=== PATIENT | female | born 1985 | race American Indian/Alaskan Native ===

== ENCOUNTER 2016-07-19 08:58 | Emergency (ER) | payer MEDICAID ==
[2016-07-19 09:08] VITALS: BP 117/71
--- NOTE | 2016-07-19 09:45 | Emergency Department Report ---
- General Chief Complaint: Upper Respiratory Infection Stated Complaint: 9 WKS PREG/FLU SYMPTOMS Time Seen by Provider: 07/19/16 09:19 Source: patient Mode of arrival: Ambulatory Limitations: No Limitations - History of Present Illness Initial Comments: Pt reports cough/congestion/myalgias x 3 days. Reports fever of 100 that resolved with Tylenol and has not returned. Denies SOB, abdominal pain, vomiting. Reports she is 9 weeks . MD Complaint: fever, cough, rhinorrhea, nasal congestion -: Gradual, days(s) (3) Severity: mild Consistency: constant Improves With: nothing Worsens With: nothing Associated Symptoms: fever, chills, myalgias, headache, rhinorrhea, nasal congestion, cough. denies: stiff neck, chest pain, shortness of breath, abdominal pain, vomiting, diarrhea Treatments Prior to Arrival: Acetaminophen - Related Data Home Medications Medication Instructions Recorded Confirmed Last Taken Vit No.130/Iron/FA 1 tab PO QDAY 07/19/16 07/19/16 07/18/16 08:00 [ Tablet] Previous Rx's Medication Instructions Recorded Last Taken Type Pseudoephedrine [Sudafed] 30 mg PO Q6HR PRN #30 tablet 07/19/16 Unknown Rx Allergies Allergy/AdvReac Type Severity Reaction Status Date / Time No Known Allergies Allergy Unverified 07/19/16 09:03 ED Review of Systems ROS: Stated complaint: 9 WKS PREG/FLU SYMPTOMS Other details as noted in HPI Comment: All other systems reviewed and negative Constitutional: chills, fever Eyes: denies: eye pain, eye discharge, vision change ENT: as per HPI, congestion. denies: ear pain, throat pain Respiratory: cough. denies: shortness of breath, wheezing Cardiovascular: denies: chest pain, palpitations Endocrine: no symptoms reported Gastrointestinal: denies: abdominal pain, nausea, vomiting, diarrhea Genitourinary: denies: urgency, dysuria, discharge Musculoskeletal: denies: back pain, joint swelling, arthralgia Skin: denies: rash, lesions Neurological: headache. denies: weakness, paresthesias Psychiatric: denies: anxiety, depression Hematological/Lymphatic: denies: easy bleeding, easy bruising ED Past Medical Hx - Past Medical History Hx Asthma: Yes Additional medical history: ANEMIA - Surgical History Past Surgical History?: No - Social History Smoking Status: Never Smoker Substance Use Type: None - Medications Home Medications: Home Medications Medication Instructions Recorded Confirmed Last Taken Type Vit No.130/Iron/FA 1 tab PO QDAY 07/19/16 07/19/16 07/18/16 08:00 History [ Tablet] Pseudoephedrine [Sudafed] 30 mg PO Q6HR PRN #30 tablet 07/19/16 Unknown Rx ED Physical Exam - General Limitations: No Limitations General appearance: alert, in no apparent distress - Head Head exam: Present: atraumatic, normocephalic - Eye Eye exam: Present: normal appearance, PERRL, EOMI Pupils: Present: normal accommodation - ENT ENT exam: Present: normal orophraynx, mucous membranes moist, TM's normal bilaterally, normal external ear exam, other (nasal mucosa inflamed) - Neck Neck exam: Present: normal inspection, full ROM. Absent: tenderness, meningismus - Respiratory Respiratory exam: Present: normal lung sounds bilaterally. Absent: respiratory distress, wheezes, rhonchi, decreased breath sounds - Cardiovascular Cardiovascular Exam: Present: regular rate, normal rhythm. Absent: systolic murmur, diastolic murmur, rubs, gallop - GI/Abdominal GI/Abdominal exam: Present: soft, normal bowel sounds, hernia (easily reducible umbilical). Absent: tenderness, guarding, rebound - Extremities Exam Extremities exam: Present: normal inspection - Back Exam Back exam: Present: normal inspection. Absent: CVA tenderness (R), CVA tenderness (L) - Neurological Exam Neurological exam: Present: alert, oriented X3, normal gait - Psychiatric Psychiatric exam: Present: normal affect, normal mood - Skin Skin exam: Present: warm, dry, intact, normal color. Absent: rash ED Course Vital Signs 07/19/16 09:00 Temperature 97.2 F L Pulse Rate 95 H Respiratory 18 Rate Blood Pressure 117/71 O2 Sat by Pulse 100 Oximetry - Reevaluation(s) Reevaluation #1: 07/19/16 09:32 NAD, stable for d/c. ED Medical Decision Making - Medical Decision Making Pt with likely viral etiology for symptoms. Benign exam. Supportive care and follow up were discussed. Advised to consult list of OTC meds provided by OBGYN prior to taking. - Differential Diagnosis flu/viral URI, sinusitis, PNA Critical care attestation.: If time is entered above; I have spent that time in minutes in the direct care of this critically ill patient, excluding procedure time. ED Disposition Clinical Impression: Viral URI with cough Disposition: DISCHARGED TO HOME OR SELFCARE Is pt being admited?: No Condition: Good Instructions: Upper Respiratory Infection (ED) Prescriptions: Pseudoephedrine [Sudafed] 30 mg PO Q6HR PRN #30 tablet PRN Reason: Congestion Referrals: ELLIOTT GTZ MD [Staff Physician] - 3-5 Days Time of Disposition: 09:36
== END 2016-07-19 09:48 | disposition home or self-care (01) ==
LOC: ED 08:58
DX: O99.511 Diseases of the respiratory system complicating pregnancy, first trimester (principal); J06.9 Acute upper respiratory infection, unspecified; J45.909 Unspecified asthma, uncomplicated; Z86.2 Personal history of diseases of the blood and blood-forming organs and certain disorders involving the immune mechanism; Z3A.09 9 weeks gestation of pregnancy
CPT/HCPCS: 99282

== ENCOUNTER 2016-10-15 09:39 | Outpatient (CLI) | payer MEDICAID ==
[2016-10-15 11:30] VITALS: BP 111/67
[2016-10-15] MEDS ORDERED: DECADRON IM ONE (11:31)
[2016-10-15] MEDS ORDERED: TORADOL IM ONE (11:31)
[2016-10-15] MEDS ORDERED: LACTATED RINGERS 500 ML IV ONE (13:00)
== END 2016-10-15 13:06 | disposition home or self-care (01) ==
LOC: EDSTATUS 11:31 → TRG 11:36
PROVIDERS: ATTEND Obstetrics & Gynecology
DX: O47.02 False labor before 37 completed weeks of gestation, second trimester (principal); Z3A.22 22 weeks gestation of pregnancy
CPT/HCPCS: 59025

== ENCOUNTER 2016-10-30 22:12 | Outpatient (CLI) | payer MEDICAID ==
[2016-10-30] MEDS ORDERED: LACTATED RINGERS 500 ML IV ONE (22:35)
[2016-10-30 23:29] VITALS: BP 110/69
== END 2016-10-30 23:50 | disposition home or self-care (01) ==
LOC: TRG 22:12
PROVIDERS: ATTEND Obstetrics & Gynecology
DX: O26.892 Other specified pregnancy related conditions, second trimester (principal); R51 Headache; R04.0 Epistaxis; Z3A.25 25 weeks gestation of pregnancy
CPT/HCPCS: 59025; 96360; J7120

== ENCOUNTER 2016-12-11 20:46 | Outpatient (CLI) | payer MEDICAID ==
[2016-12-11 21:18] VITALS: BP 110/67
[2016-12-11 21:52] LABS: Bilirubin,Urine NEG (Negative); Blood,Urine NEG (Negative); Ketones,Urine NEG (Negative); Leukocyte Esterase,Urine MOD (Negative); Mucus,Urine FEW /HPF; Nitrite,Urine NEG (Negative); Protein,Urine <15 mg/dL mg/dL (Negative); Urobilinogen,Urine < 2.0 mg/dL (<2.0)
== END 2016-12-11 22:56 | disposition home or self-care (01) ==
LOC: TRG 20:46
PROVIDERS: ATTEND Obstetrics & Gynecology
DX: O26.893 Other specified pregnancy related conditions, third trimester (principal); R10.30 Lower abdominal pain, unspecified; Z3A.30 30 weeks gestation of pregnancy
CPT/HCPCS: 81001

== ENCOUNTER 2018-09-12 08:39 | Emergency (ER) | payer MEDICAID, OTHER ==
[2018-09-12 08:50] VITALS: BP 123/72
--- NOTE | 2018-09-12 10:56 | XRay Report ---
CERVICAL SPINE, 3 views: History: Neck pain. Findings: The vertebral bodies, disk spaces, posterior elements and prevertebral soft tissues are unremarkable. The dens is intact. No acute fracture or malalignment is identified. Impression: 1. No evidence for acute injury to the cervical spine.
--- NOTE | 2018-09-12 10:56 | XRay Report ---
RIGHT SHOULDER, 3 VIEWS: HISTORY: right shoulder pain. Normal bone mineralization. No acute osseous injury or joint pathology is detected. The soft tissues are unremarkable. IMPRESSION: Right shoulder within normal limits.
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
== END 2018-09-12 11:55 | disposition home or self-care (01) ==
LOC: ED 08:39
DX: M54.2 Cervicalgia (principal); M25.511 Pain in right shoulder; M79.10 Myalgia, unspecified site; J45.909 Unspecified asthma, uncomplicated; Z86.2 Personal history of diseases of the blood and blood-forming organs and certain disorders involving the immune mechanism; Z88.5 Allergy status to narcotic agent; V87.7XXA Person injured in collision between other specified motor vehicles (traffic), initial encounter; Y93.89 Activity, other specified; Y92.488 Other paved roadways as the place of occurrence of the external cause; Y99.8 Other external cause status
CPT/HCPCS: 72040; 99283